=== PATIENT | female | born 1995 | race Caucasian/White ===

== ENCOUNTER 2019-02-21 19:59 | Emergency (ER) | payer MEDICAID ==
[~2019-02-21] VITALS: Ht 180.3 cm; Wt 81.8 kg
[~2019-02-21 19:59] MED LIST: CYCL-1 PO; ONDA4TAB6 PO
[2019-02-21 20:14] VITALS: BP 154/95
[2019-02-21] MEDS ORDERED: HYDROcodone/acetaminophen 5mg/325mg tablet PO ONE (21:55)
== END 2019-02-21 22:12 | disposition home or self-care (01) ==
LOC: ER 19:59
DX: S90.122A Contusion of left lesser toe(s) without damage to nail, initial encounter (principal); F12.90 Cannabis use, unspecified, uncomplicated; F10.99 Alcohol use, unspecified with unspecified alcohol-induced disorder; Z79.899 Other long term (current) drug therapy; W22.01XA Walked into wall, initial encounter; Y93.89 Activity, other specified; Y92.89 Other specified places as the place of occurrence of the external cause; Y99.8 Other external cause status; Y90.9 Presence of alcohol in blood, level not specified
CPT/HCPCS: 73660; 99283

== ENCOUNTER 2023-10-05 21:44 | Emergency (ER) | payer MEDICAID, OTHER ==
[~2023-10-05] VITALS: Ht 177.8 cm; Wt 95.5 kg
[2023-10-05 21:50] VITALS: PULSE 73; TEMP 97.8
[2023-10-05] MEDS: LIDOcaine 1% 30ml preserv. free vial IJ STA (22:40)
[2023-10-05 23:10] VITALS: RESP 16
== END 2023-10-05 23:13 | disposition home or self-care (01) ==
LOC: ER 21:45
DX: S61.210A Laceration without foreign body of right index finger without damage to nail, initial encounter (principal); W45.8XXA Other foreign body or object entering through skin, initial encounter; Y93.89 Activity, other specified; Y92.89 Other specified places as the place of occurrence of the external cause; Y99.8 Other external cause status
CPT/HCPCS: 12001; 73130; 99283; A6449

== ENCOUNTER 2024-01-13 21:16 | Emergency (ER) | payer MEDICAID ==
[~2024-01-13] VITALS: Ht 177.8 cm; Wt 91.8 kg
[2024-01-13] MEDS: LIDOcaine 1% W/epiNEPHrine 1:100,000 20ml vial SQ ONE (22:16)
[2024-01-13] MEDS ORDERED: AMOX-117 PO (22:40)
[2024-01-13 22:44] VITALS: BP 123/84; PULSE 84; RESP 19; TEMP 98.1; O2SAT 99
== END 2024-01-13 22:47 | disposition home or self-care (01) ==
LOC: ER 21:17
DX: S01.151A Open bite of right eyelid and periocular area, initial encounter (principal); F12.90 Cannabis use, unspecified, uncomplicated; Z79.899 Other long term (current) drug therapy; W54.0XXA Bitten by dog, initial encounter; Y93.89 Activity, other specified; Y92.89 Other specified places as the place of occurrence of the external cause; Y99.8 Other external cause status
CPT/HCPCS: 12014; 99283; A6449